=== PATIENT | female | born 1975 | race Caucasian/White ===

== ENCOUNTER 2020-04-23 16:15 | Emergency (ER) | payer BC, SELFPAY ==
[2020-04-23 16:17] VITALS: BP 148/80; PULSE 98; RESP 18; TEMP 37; O2SAT 96; BMI 41.5
--- NOTE | 2020-04-23 16:35 | ECG_ITS ---
[facility] Test Date: 2020-04-23 Pat Name: Allyson Metcalf Department: Room: Gender: Female Product/Device Technologist: : [id number] Requested By: Cherrie Mcnamara Order Number: [id number] Liliam MD: Cara Linares M.D. Measurements Intervals [place] Rate: 100 P: 51 W[place]: 180 QRS: -11 QRSD: 96 T: 35 QT: 361 QTc: 466 Interpretive Statements SINUS TACHYCARDIA LOW QRS VOLTAGE IN PRECORDIAL LEADS [QRS DEFLECTION < 1.0 mV IN CHEST LEADS] INCOMPLETE RIGHT BUNDLE BRANCH BLOCK [90+ ms QRS DURATION, TERMINAL R IN V1/V2, 40+ ms S IN I/aVL/V4/V5/V6] ANTEROSEPTAL MYOCARDIAL INFARCTION , OF INDETERMINATE AGE [40+ ms Q WAVE IN V1-V4] No previous ECG available for comparison Electronically Signed On 04-23-2020 22:37:08 CDT by Cara Linares M.D. [email or web address] [id number] f
--- NOTE | 2020-04-23 16:36 | XRR_ITS ---
PROCEDURE INFORMATION: Exam: XR Chest, 1 View Exam date and time: 04/23/2020 4:50 PM Age: 44 years old Clinical indication: Other: Tachycardia TECHNIQUE: Imaging protocol: XR of the chest Views: 1 view. COMPARISON: No relevant prior studies available. FINDINGS: Lungs: Unremarkable. No consolidation. Pleural space: Unremarkable. No pleural effusion. No pneumothorax. Heart/Mediastinum: Unremarkable. No cardiomegaly. Bones/joints: Unremarkable. XR/XR chest 1V portable [id number] IMPRESSION: No acute findings.
[2020-04-23 16:46] VITALS: BP 145/94; PULSE 97; RESP 16; O2SAT 96
[2020-04-23] MEDS: sodium chloride 0.9% 1,000 ML 999 ML IV (16:49)
[2020-04-23 16:53] LABS: Add Urine Microscopic? NO
[2020-04-23 16:55] LABS: Bilirubin Urine Neg (NEGATIVE); Blood Urine Neg (Negative); Glucose Urine UA Norm (Normal); Ketones Urine Negative (Negative); Leukocyte Esterase Urine Negative (Negative); Nitrate Urine Negative (Negative); Protein Urine Neg (Negative); Urine Appearance Clear (CLEAR); Urine Color Straw (Yellow); Urobilinogen Urine Norm (Negative); pH Urine 7 (5-7)
[2020-04-23 17:04] LABS: Basophils # 0.1 10^3/uL (0.0-0.1); Basophils % 0.6 %; Eosinophils # 0.2 10^3/uL (0.0-0.8); Eosinophils % 2.3 %; Hematocrit 39.7 % (37.0-47.0); Hemoglobin 12.8 g/dL (11.5-15.3); Lymphocytes # 1.7 10^3/uL (0.8-4.8); Lymphocytes % 19.6 %; Mean Corpuscular HGB Conc 32.2 g/dL (30.0-36.0); Mean Corpuscular Hemoglobin 28.9 pg (28.0-34.0); Mean Corpuscular Volume 89.6 fL (81-99); Monocytes # 0.6 10^3/uL (0.2-0.9); Monocytes % 6.9 %; Neutrophils # 5.89 10^3/uL (1.8-7.7); Neutrophils % 69.9 %; Nucleated Red Blood Cells % 0 %; Platelet Count 199 10^3/cmm (130-400); Red Blood Count 4.43 10^6/uL (4.1-5.3); Red Cell Distribution Width 12.6 % (12.1-15.1); White Blood Count 8.4 10^3/uL (4.0-10.0)
[2020-04-23 17:23] LABS: HCG, Serum Qual Negative (Negative)
[2020-04-23 17:25] LABS: Alanine Aminotransferase 120 U/L (0-33); Albumin Level 4.9 g/dL (3.5-5.2); Alkaline Phosphatase 106 IU/L (35-105); Anion Gap 12.8 (5-19); Aspartate Amino Transferase 82 U/L (0-32); Blood Urea Nitrogen 9 mg/dL (6-20); Calcium 9.9 mg/dL (8.5-10.5); Carbon Dioxide 28 mmol/L (22-29); Chloride 100 mmol/L (98-107); Globulin 2.7 g/dL (1.3-4.6); Glomerular Filtration Rate 109.6 mL/min (90-130); Glucose 101 mg/dL (65-115); Osmolality Calculated 280 mOsm/kg (285-295); Potassium 3.8 mmol/L (3.5-5.1); Sodium 137 mmol/L (136-145); Total Bilirubin 0.3 mg/dL (0.15-1.2); Total Protein 7.6 g/dL (6.6-8.7); Troponin(5th) Baseline 6 ng/L (0-10)
[2020-04-23 17:29] LABS: D Dimer <= 0.27 ug/mIFEU (0-0.59)
--- NOTE | 2020-04-23 17:29 | ED_ITS ---
HPI - Dizziness General: Chief Complaint: Dizziness Stated Complaint: DIZZY Time Seen by Provider: 04/23/20 16:17 History of Present Illness: HPI Narrative: This patient is a 44-year-old female who presents today with vague complaints of feeling strange. She was sitting at her computer at about 2 this afternoon and suddenly felt like she was going to pass out. She felt very heavy in her arms and legs. She denies difficulty breathing. She said her heart was racing. She denies any numbness, tingling, hand cramping. The symptoms continued and she went to the medical clinic in [facility]. They did an EKG there and had some concerns about it being not quite normal. Due to that and her symptoms she was transported here by ambulance. She has not been given any medications. She still feels anxious and her heart is racing but her other symptoms have improved. She had some heaviness and tightness in her chest but no true chest pain. She has not been sick recently. She has no new medications or medication changes. She has not started any [id number] medicines and does not drink a lot of caffeine or energy drinks. She does take Synthroid and is been on the same dose for probably 20 years she thinks. She has no personal history of blood clots or cardiac disease. She does not have any vision changes or hearing changes. She really does not have a spinning sensation. MD elicited complaint: lightheadedness and near syncope Timing: sudden onset and constant Severity: moderate Description: lightheadedness and difficulty walking Associated symptoms: Denies chest pain, chills, headache(s), malaise, nausea or vomiting Associated neuro symptoms: Deny numbness in extremities Review of Systems General: Reports: 10 or more systems reviewed and unremarkable except in HPI and below Const: Denies: fever(s), chills, fatigue or malaise Eyes: Denies: change in vision ENMT: Denies: odynophagia Card: Denies: chest pain or swelling of feet/ankles Resp: Denies: dyspnea, productive cough or non-productive cough GI: Denies: abdominal pain, nausea or vomiting : Denies: flank pain or difficulty voiding Musc: Denies: neck pain or back pain Skin/Breast: Denies: rash Neuro: Denies: headache(s), numbness in extremities or weakness in extremities Jacinto/Lymph: Denies: easy bruising or easy bleeding PFS ED PFSH: Medical History Hypothyroid Physical Exam Const: COMMON NORMALS: no acute distress, patient oriented x3, no limitations and alert GENERAL APPEARANCE: cooperative and comfortable HENMT: HEAD & SCALP: normal to inspection FACE & SINUS: normal facial exam Eye: GENERAL EYE: appearance normal, both eyes and all related structures Neck/C-Spine: COMMON NORMALS: supple, no meningeal signs and no JVD Chest: COMMONS NORMALS: normal inspection of the chest Resp: COMMON NORMALS: normal respiratory effort, No use of accessory muscles and clear to auscultation bilaterally AUSCULTATION: clear to auscultation bilaterally Cardio: COMMON NORMALS: no JVD, regular rate, regular rhythm and No murmurs present (Cardio) RATE: regular rate and tachycardic (100) RHYTHM: regular rhythm GI: COMMON NORMALS: Normal to inspection, nondistended, normoactive bowel sounds present, Soft to palpation and non-tender INSPECTION: Yes normal to inspection AUSCULTATION: Yes normoactive bowel sounds PALPATION: Yes Soft to palpation Back/Pelvis: COMMON NORMALS: thoracic and lumbar spine normal to inspection Extremity: COMMON NORMALS: normal to inspection Neuro: COMMON NORMALS: patient oriented x3, moves all extremities, no focal motor deficits and no sensory deficits noted SENSORIUM/ORIENTATION: Yes alert MENINGEAL SIGNS: Yes no meningeal signs Psych: COMMON NORMALS: mental status grossly normal, cooperative and normal affect Skin: COMMON NORMALS: no rashes or lesions noted and turgor normal GENERAL SKIN EXAM: no rashes or lesions noted and turgor normal Course ED course: Patient with tachycardia and feeling odd. Not a classic panic attack, although we discussed panic disorder and anxiety as a possible cause. Persistently tachy in the ED - but only around 100. Work up neg for clear cause of the tachycardia. Offered admission - she wants to go home but is agreeable to cardiology follow up and an event monitor. Vital Signs: Vital signs: Vital Signs Temperature 98.6 F 04/23/20 16:17 Pulse Rate 93 04/23/20 18:41 Respiratory Rate 16 04/23/20 18:41 Blood Pressure 142/88 07/15/20 18:41 Pulse Oximetry 95 07/15/20 18:41 MDM - Dizziness Lab Data: Labs: Lab Results 04/23/20 04/23/20 04/23/20 Range/Units 16:26 16:52 16:52 WBC 8.4 (4.0-10.0) 10^3/ uL RBC 4.43 (4.1-5.3) 10^6/u L Hgb 12.8 (11.5-15.3) g/dL Hct 39.7 (37.0-47.0) % MCV 89.6 (81-99) fL MCH 28.9 (28.0-34.0) pg MCHC 32.2 (30.0-36.0) g/dL RDW 12.6 (12.1-15.1) % Plt Count 199 (130-400) 10^3/c mm MPV 11.0 H (7.4-10.4) fL Neut % (Auto) 69.9 % Lymph % (Auto) 19.6 % [place] % (Auto) 6.9 % Eos % (Auto) 2.3 % Baso % (Auto) 0.6 % Neut # (Auto) 5.89 (1.8-7.7) 10^3/u L Lymph # (Auto) 1.7 (0.8-4.8) 10^3/u L [place] # (Auto) 0.6 (0.2-0.9) 10^3/u L Eos # (Auto) 0.2 (0.0-0.8) 10^3/u L Baso # (Auto) 0.1 (0.0-0.1) 10^3/u L Nucleated RBC % (a uto) 0 % Nucleated RBCs # 0.0 /100WBC D-Dimer (0-0.59) ug/mIFE U Sodium (136-145) mmol/L Potassium (3.5-5.1) mmol/L Chloride (98-107) mmol/L Carbon Dioxide (22-29) mmol/L Anion Gap (5-19) BUN (6-20) mg/dL Creatinine (0.5-0.9) mg/dL GFR Calculation (90-130) mL/min Glucose (65-115) mg/dL Calculated Osmolal ity (285-295) mOsm/k g Calcium (8.5-10.5) mg/dL Total Bilirubin (0.15-1.2) mg/dL AST (0-32) U/L ALT (0-33) U/L Alkaline Phosphata se (35-105) IU/L Troponin T Baselin e 6 (0-10) ng/L Total Protein (6.6-8.7) g/dL Albumin (3.5-5.2) g/dL Globulin (1.3-4.6) g/dL TSH (0.27-4.20) uIU/ mL Free T4 (0.82-1.77) ng/d L HCG, Qual (Negative) Urine Color Straw (Yellow) Urine Appearance Clear (CLEAR) Urine pH 7 (5-7) Ur Specific Gravit y 1.000 L (1.005-1.030) Urine Protein Neg (Negative) Urine Glucose (UA) Norm (Normal) Urine Ketones Negative (Negative) Urine Blood Neg (Negative) Urine Nitrate Negative (Negative) Urine Bilirubin Neg (NEGATIVE) Urine Urobilinogen Norm (Negative) mg/dL Ur Leukocyte Steph ase Negative (Negative) 04/23/20 04/23/20 04/23/20 Range/Units 16:52 16:52 16:52 WBC (4.0-10.0) 10^3/ uL RBC (4.1-5.3) 10^6/u L Hgb (11.5-15.3) g/dL Hct (37.0-47.0) % MCV (81-99) fL MCH (28.0-34.0) pg MCHC (30.0-36.0) g/dL RDW (12.1-15.1) % Plt Count (130-400) 10^3/c mm MPV (7.4-10.4) fL Neut % (Auto) % Lymph % (Auto) % [place] % (Auto) % Eos % (Auto) % Baso % (Auto) % Neut # (Auto) (1.8-7.7) 10^3/u L Lymph # (Auto) (0.8-4.8) 10^3/u L [place] # (Auto) (0.2-0.9) 10^3/u L Eos # (Auto) (0.0-0.8) 10^3/u L Baso # (Auto) (0.0-0.1) 10^3/u L Nucleated RBC % (a uto) % Nucleated RBCs # /100WBC D-Dimer <= 0.27 (0-0.59) ug/mIFE U Sodium 137 (136-145) mmol/L Potassium 3.8 (3.5-5.1) mmol/L Chloride 100 (98-107) mmol/L Carbon Dioxide 28 (22-29) mmol/L Anion Gap 12.8 (5-19) BUN 9 (6-20) mg/dL Creatinine 0.6 (0.5-0.9) mg/dL GFR Calculation 109.6 (90-130) mL/min Glucose 101 (65-115) mg/dL Calculated Osmolal ity 280 L (285-295) mOsm/k g Calcium 9.9 (8.5-10.5) mg/dL Total Bilirubin 0.3 (0.15-1.2) mg/dL AST 82 H (0-32) U/L ALT 120 H (0-33) U/L Alkaline Phosphata se 106 H (35-105) IU/L Troponin T Baselin e (0-10) ng/L Total Protein 7.6 (6.6-8.7) g/dL Albumin 4.9 (3.5-5.2) g/dL Globulin 2.7 (1.3-4.6) g/dL TSH (0.27-4.20) uIU/ mL Free T4 (0.82-1.77) ng/d L HCG, Qual Negative (Negative) Urine Color (Yellow) Urine Appearance (CLEAR) Urine pH (5-7) Ur Specific Gravit y (1.005-1.030) Urine Protein (Negative) Urine Glucose (UA) (Normal) Urine Ketones (Negative) Urine Blood (Negative) Urine Nitrate (Negative) Urine Bilirubin (NEGATIVE) Urine Urobilinogen (Negative) mg/dL Ur Leukocyte Steph ase (Negative) 04/23/20 04/23/20 Range/Units 16:52 16:52 WBC (4.0-10.0) 10^3/ uL RBC (4.1-5.3) 10^6/u L Hgb (11.5-15.3) g/dL Hct (37.0-47.0) % MCV (81-99) fL MCH (28.0-34.0) pg MCHC (30.0-36.0) g/dL RDW (12.1-15.1) % Plt Count (130-400) 10^3/c mm MPV (7.4-10.4) fL Neut % (Auto) % Lymph % (Auto) % [place] % (Auto) % Eos % (Auto) % Baso % (Auto) % Neut # (Auto) (1.8-7.7) 10^3/u L Lymph # (Auto) (0.8-4.8) 10^3/u L [place] # (Auto) (0.2-0.9) 10^3/u L Eos # (Auto) (0.0-0.8) 10^3/u L Baso # (Auto) (0.0-0.1) 10^3/u L Nucleated RBC % (a uto) % Nucleated RBCs # /100WBC D-Dimer (0-0.59) ug/mIFE U Sodium (136-145) mmol/L Potassium (3.5-5.1) mmol/L Chloride (98-107) mmol/L Carbon Dioxide (22-29) mmol/L Anion Gap (5-19) BUN (6-20) mg/dL Creatinine (0.5-0.9) mg/dL GFR Calculation (90-130) mL/min Glucose (65-115) mg/dL Calculated Osmolal ity (285-295) mOsm/k g Calcium (8.5-10.5) mg/dL Total Bilirubin (0.15-1.2) mg/dL AST (0-32) U/L ALT (0-33) U/L Alkaline Phosphata se (35-105) IU/L Troponin T Baselin e (0-10) ng/L Total Protein (6.6-8.7) g/dL Albumin (3.5-5.2) g/dL Globulin (1.3-4.6) g/dL TSH 12.17 H (0.27-4.20) uIU/ mL Free T4 1.26 (0.82-1.77) ng/d L HCG, Qual (Negative) Urine Color (Yellow) Urine Appearance (CLEAR) Urine pH (5-7) Ur Specific Gravit y (1.005-1.030) Urine Protein (Negative) Urine Glucose (UA) (Normal) Urine Ketones (Negative) Urine Blood (Negative) Urine Nitrate (Negative) Urine Bilirubin (NEGATIVE) Urine Urobilinogen (Negative) mg/dL Ur Leukocyte Steph ase (Negative) Discharge Plan Discharge Patient Disposition: Home, Self-Care Clinical Impression: Atrial tachycardia, Malaise Condition: Stable Prescriptions: No Action levothyroxine [Synthroid] 200 mcg tablet 200 mcg PO DAILY Qty: 30 RF: 1 Discharge Orders: Discharge Order (Routine); Ordered 04/23/20 Ordered By: Cherrie Anderson Other Ambulatory Orders: [place] 2 week event monitor (Routine) Timeframe: 2 Days Facility: [facility] - Location: Cardiac Diagnostic Laboratory Ordered By: Cherrie Anderson Referrals: Genaro Santos MD [Physician] - 7-10 days MARIPOSA Oh FNP [Family Provider] - Kajal Batres FNP [Primary Care Provider] - Discharge Diet: Advance as tolerated Discharge Activity: Resume usual activity Patient Instructions: Atrial Tachycardia (ED) Activity Restrictions/Additional Instructions: Follow-up with your primary care provider regarding your thyroid medication. Follow-up with cardiology as recommended for further evaluation of your heart rate changes. Return to the emergency department immediately if you have worsening of your symptoms, pass out, have chest pain. Avoid caffeinated products. Discharge Date/Time: 04/23/20 18:42 Coding Level of Care Code ED Sr. Operations Manager for [employer] Fwd Exam Comprehensive
[2020-04-23 18:08] LABS: Thyroid Stimulating Hormone 12.17 uIU/mL (0.27-4.20)
[2020-04-23 18:41] VITALS: BP 142/88; PULSE 93; RESP 16; O2SAT 95
[2020-04-23 18:44] LABS: Free T4 Free Thyroxine 1.26 ng/dL (0.82-1.77)
--- NOTE | 2020-04-25 16:10 | DCPLANNER ---
mailing manager had message to schedule a follow up appointment for patient with [facility] for a event monitor. mailing manager faxed order to [facility], will call for appointment information.
--- NOTE | 2020-04-30 15:15 | DCPLANNER ---
human resources district manager called [facility], patient will need follow up appointment with [facility] after the event monitor. human resources district manager called [facility], spoke with Ansley, and explained that patient needs a follow up appointment. human resources district manager was told that an appointment would be scheduled and the clinic will call patient with appointment information.
--- NOTE | 2020-05-15 08:32 | DCPLANNER ---
Patient did attend appointment scheduled for 05.05.20 with [facility].
== END 2020-04-23 18:42 | disposition home or self-care (01) ==
PROVIDERS: Emergency Provider Emergency Medicine; Family Provider Nurse Practitioner Family; PCP Nurse Practitioner
DX: I47.1 Supraventricular tachycardia (principal); R53.81 Other malaise
CPT/HCPCS: 12345; 71045; 80053; 81003; 84439; 84443; 84484; 84703; 85025; 85378; 93005; 96360; 99283; 99284; J7030

== ENCOUNTER → 2020-09-01 10:38 | Outpatient (BNVA) | payer BC, SELFPAY | PROVIDERS: Family Provider Nurse Practitioner Family; PCP Nurse Practitioner; Visit Provider Nurse Practitioner Family | DX: E03.9 Hypothyroidism, unspecified (principal) | CPT/HCPCS: 84443 ==

== ENCOUNTER → 2020-12-02 11:35 | Outpatient (BNVA) | payer BC, SELFPAY | PROVIDERS: Family Provider Nurse Practitioner Family; PCP Nurse Practitioner Family; Visit Provider Nurse Practitioner Family | DX: E03.9 Hypothyroidism, unspecified (principal) | CPT/HCPCS: 84443 ==

== ENCOUNTER 2021-01-09 07:09 | Outpatient (CLI) | payer BC, SELFPAY ==
--- NOTE | 2021-01-09 07:14 | MM_ITS ---
WS: [id number] Bilateral screening digital mammogram, 01/09/2021 Clinical Data: SCREENING Comparison: 05/25/2019. Findings: The breast parenchymal pattern shows fibroglandular tissue No spiculated masses or clustered calcific ations are seen. There are no secondary signs of carcinoma. MM/[place] [id number] Impression: 1. Negative bilateral mammogram unchanged. 2. Recommend annual screening mammograms. BIRADS: 1-Negative FOLLOW UP: 1 Year Follow-up The CAD credit rating checker was used. BI-RADS 1 -- negative findings (within normal)
== END 2021-01-09 07:10 | disposition home or self-care (01) ==
LOC: RADSHAW 07:12
PROVIDERS: PCP Nurse Practitioner Family; Visit Provider Nurse Practitioner Family
DX: Z12.31 Encounter for screening mammogram for malignant neoplasm of breast (principal)
CPT/HCPCS: 77067

== ENCOUNTER → 2021-02-19 11:48 | Outpatient (BNVA) | payer BC, SELFPAY | PROVIDERS: PCP Nurse Practitioner Family; Visit Provider Nurse Practitioner Family | DX: E55.9 Vitamin D deficiency, unspecified (principal); E03.9 Hypothyroidism, unspecified; Z13.6 Encounter for screening for cardiovascular disorders; Z79.899 Other long term (current) drug therapy | CPT/HCPCS: 80053; 80061; 81003; 82306; 83036; 84439; 84443; 85025 ==

== ENCOUNTER → 2021-05-04 11:31 | Outpatient (BNVA) | payer BC, SELFPAY | PROVIDERS: PCP Nurse Practitioner Family; Visit Provider Nurse Practitioner Family | DX: E03.9 Hypothyroidism, unspecified (principal) | CPT/HCPCS: 84443 ==

== ENCOUNTER → 2021-05-12 09:26 | Outpatient (BNVA) | payer BC, SELFPAY | PROVIDERS: PCP Nurse Practitioner Family; Visit Provider Nurse Practitioner Family | DX: E03.9 Hypothyroidism, unspecified (principal) | CPT/HCPCS: 84439; 84443 ==

== ENCOUNTER 2021-06-26 12:31 | Outpatient (CLI) | payer BC, SELFPAY ==
--- NOTE | 2021-06-26 12:36 | US_ITS ---
WS: [id number] THYROID ULTRASOUND HISTORY: E03.9 - Hypothyroidism, unspecified COMPARISON: None available. Right lobe: 1.0 cm x 1.3 cm x 4.0 cm (w x ap x l). Volume: 2.6 cm3. Small atrophic mildly heterogeneous gland. No nodule or increased vascularity. No adenopathy. Left lobe: 0.9 cm x 1.5 cm x 3.5 cm (w x ap x l). Volume: 2.5 cm3. Small atrophic mildly heterogeneous gland. No nodule or increased vascularity. No adenopathy. Isthmus: 0.5 cm. US/US thyroid 22019 IMPRESSION: 1. Small atrophic thyroid. 2. No thyroid nodule.
== END 2021-06-26 12:32 | disposition home or self-care (01) ==
LOC: RAD 12:33
PROVIDERS: PCP Nurse Practitioner Family; Visit Provider Nurse Practitioner Family
DX: E03.9 Hypothyroidism, unspecified (principal); E03.4 Atrophy of thyroid (acquired)
CPT/HCPCS: 76536

== ENCOUNTER → 2022-02-03 10:16 | Outpatient (BNVA) | payer BC, SELFPAY | PROVIDERS: PCP Nurse Practitioner Family; Visit Provider Nurse Practitioner | DX: E03.9 Hypothyroidism, unspecified (principal); R10.9 Unspecified abdominal pain | CPT/HCPCS: 84443 ==

== ENCOUNTER 2022-02-19 05:53 | Outpatient (CLI) | payer BC, SELFPAY ==
--- NOTE | 2022-02-19 06:15 | US_ITS ---
WS: [id number] Complete ABDOMINAL ULTRASOUND HISTORY: R10.9 - Unspecified abdominal pain COMPARISON: None available. Liver: 20.4 cm in length. Moderately enlarged liver with increased attenuation and hepatic steatosis. No bile duct dilatation or mass. Portal Vein: Normal hepatopetal flow with monophasic waveform. Gallbladder: Normally distended with no gallstones, wall thickening or pericholecystic fluid. Gallbladder wall thickness: 0.3 cm. Pancreas: Head and tail are obscured by bowel gas. The body is normal. CBD: 0.4 cm. Right kidney: 11.7 cm x 5.8 cm x 4.6 cm. No mass, cortical thickening or hydronephrosis. Left kidney: 10.6 cm x 6.3 cm x 6.1 cm. No mass, cortical thickening or hydronephrosis. Spleen: Normal size and echogenicity. Abdominal aorta and IVC are within normal limits. No ascites. US/US abdomen complete* [id number] IMPRESSION: 1. Moderate hepatomegaly with severe hepatic steatosis. 2. Negative gallbladder. 3. No acute abdominal findings.
== END 2022-02-19 05:54 | disposition home or self-care (01) ==
LOC: RAD 05:53
PROVIDERS: PCP Nurse Practitioner Family; Visit Provider Nurse Practitioner
DX: R10.9 Unspecified abdominal pain (principal)
CPT/HCPCS: 76700

== ENCOUNTER → 2022-03-03 16:36 | Outpatient (BNVA) | payer BC, SELFPAY | PROVIDERS: PCP Nurse Practitioner Family; Visit Provider Internal Medicine | DX: R16.0 Hepatomegaly, not elsewhere classified (principal); R10.13 Epigastric pain | CPT/HCPCS: 80053; 80061; 85025; 86705; 86706; 86709; 86803; 87340 ==

== ENCOUNTER 2024-01-20 14:41 | Outpatient (CLI) | payer BC, SELFPAY ==
--- NOTE | 2024-01-20 15:00 | MM_ITS ---
WS: [id number] BILATERAL 3D TOMOSYNTHESIS DIGITAL SCREENING MAMMOGRAPHY WITH CAD CLINICAL INFORMATION: Z12.39 - Encounter for other screening for malignant neop... HISTORY: Screening mammogram. No current complaints. COMPARISON: 2020 TECHNIQUE: Bilateral CC and MLO views. FINDINGS: Scattered fibroglandular densities bilaterally. No suspicious focal mass, asymmetry, calcifications, or architectural distortion. No evidence of malignancy. Stable coarse calcification RIGHT breast. Ovo id density subareolar LEFT breast stable since 2018. IMPRESSION: MM/[place] [id number] BI-RADS: 2-Benign FOLLOW UP: 1 Year Follow-up Recommend return to annual screening mammography.
== END 2024-01-20 14:42 | disposition home or self-care (01) ==
LOC: RAD 14:43
PROVIDERS: PCP Nurse Practitioner Family; Visit Provider Nurse Practitioner Family
DX: Z12.31 Encounter for screening mammogram for malignant neoplasm of breast (principal)
CPT/HCPCS: 77063; 77067

== ENCOUNTER → 2024-01-23 09:20 | Outpatient (BNVA) | payer BC, SELFPAY | PROVIDERS: PCP Nurse Practitioner Family; Visit Provider Nurse Practitioner Family | DX: E03.9 Hypothyroidism, unspecified (principal); E55.9 Vitamin D deficiency, unspecified; R16.0 Hepatomegaly, not elsewhere classified; E11.69 Type 2 diabetes mellitus with other specified complication; E78.5 Hyperlipidemia, unspecified; R74.8 Abnormal levels of other serum enzymes; Z13.6 Encounter for screening for cardiovascular disorders | CPT/HCPCS: 80053; 80061; 81003; 82306; 83036; 84439; 84443; 85025 ==